=== PATIENT | male | born 1970 | race Caucasian/White ===

== ENCOUNTER 2017-11-01 16:08 | Emergency (ER) | payer MEDICAID ==
[~2017-11-01] VITALS: Ht 188 cm; Wt 90.7 kg
[2017-11-01 16:10] VITALS: BP_SYST 126
[2017-11-01 18:15] VITALS: BP_SYST 124
== END 2017-11-01 18:14 | disposition home or self-care (01) ==
LOC: SED 16:08
DX: S60.221A Contusion of right hand, initial encounter (principal); K21.9 Gastro-esophageal reflux disease without esophagitis; X58.XXXA Exposure to other specified factors, initial encounter; Y93.89 Activity, other specified; Y92.89 Other specified places as the place of occurrence of the external cause; Y99.8 Other external cause status
CPT/HCPCS: 99284

== ENCOUNTER 2017-11-28 10:42 | Emergency (ER) | payer MEDICAID ==
[~2017-11-28] VITALS: Ht 188 cm; Wt 90.7 kg
[2017-11-28 10:46] VITALS: BP_SYST 152
[2017-11-28 12:15] VITALS: BP_SYST 152
== END 2017-11-28 12:15 | disposition home or self-care (01) ==
LOC: SED 10:42
DX: M54.5 Low back pain (principal); Z90.49 Acquired absence of other specified parts of digestive tract
CPT/HCPCS: 99282

== ENCOUNTER 2018-11-24 13:12 | Emergency (ER) | payer MEDICAID ==
[~2018-11-24] VITALS: Ht 188 cm; Wt 90.7 kg
[2018-11-24 13:26] VITALS: BP_SYST 142
[2018-11-24 16:44] VITALS: BP_SYST 134
== END 2018-11-24 16:44 | disposition home or self-care (01) ==
LOC: SED 13:12
DX: S63.065A Dislocation of metacarpal (bone), proximal end of left hand, initial encounter (principal); R03.0 Elevated blood-pressure reading, without diagnosis of hypertension; Z90.49 Acquired absence of other specified parts of digestive tract; W54.1XXA Struck by dog, initial encounter; Y93.89 Activity, other specified; Y92.89 Other specified places as the place of occurrence of the external cause; Y99.8 Other external cause status
CPT/HCPCS: 99283

== ENCOUNTER 2018-12-06 13:20 | Emergency (ER) | payer MEDICAID ==
[~2018-12-06] VITALS: Ht 188 cm; Wt 88.5 kg
[2018-12-06 13:30] VITALS: BP_SYST 132
--- NOTE | 2018-12-06 13:30 | NUR ---
Patient to ER bed 8 to gown for evaluation. Side rails up. Report given to Daniel BEE.
--- NOTE | 2018-12-06 13:35 | NUR ---
PT presented at ER with complaints of wrist pain. The patient claimed that he tore his ligament in his wrist and wanted a follow up xray to confirm.
--- NOTE | 2018-12-06 13:35 | NUR ---
ER at bedside examining patient.
--- NOTE | 2018-12-06 13:40 | NUR ---
Patient transported to radiology and is ambulatory, accompanied by taj.
[2018-12-06 14:40] VITALS: BP_SYST 132
--- NOTE | 2018-12-06 14:40 | NUR ---
Patient given written and verbal discharge instructions and verbalizes understanding. ER MD discussed with patient the results and treatment provided. Patient in stable condition. ID arm band removed. Rx of [place]aga given. Patient educated on pain management and to follow up with PMD. Pain Scale 3/10. Opportunity for questions provided and answered. Medication side effect fact sheet provided.
== END 2018-12-06 14:40 | disposition home or self-care (01) ==
LOC: SED 13:20
DX: M25.532 Pain in left wrist (principal); Z90.49 Acquired absence of other specified parts of digestive tract
CPT/HCPCS: 99283

== ENCOUNTER 2020-05-18 18:25 | Emergency (ER) | payer MEDICAID ==
[~2020-05-18] VITALS: Ht 188 cm; Wt 88.5 kg
[2020-05-18 18:48] VITALS: BP_SYST 176
[2020-05-18] MEDS: KETOROLAC TROMETHAMINE 60 MG/2 ML VIAL IM ONE (18:55)
[2020-05-18 21:59] LABS: BASOPHILS % (AUTO) 0.4 % (0.0-2.0); EOSINOPHILS # (AUTO) 0.2 K/uL (0.0-0.4); EOSINOPHILS % (AUTO) 2.7 % (0.0-4.0); HEMATOCRIT 45.2 % (36-54); HEMOGLOBIN 15.7 g/dL (14.0-18.0); LYMPHOCYTES # (AUTO) 2.2 K/uL (1.0-5.5); LYMPHOCYTES % (AUTO) 30.2 % (20.5-51.5); MEAN CORPUSCULAR HEMOGLOBIN 31 pg (27-31); MEAN CORPUSCULAR HGB CONC 35 % (32-36); MEAN CORPUSCULAR VOLUME 90 fL (79.0-98.0); MONOCYTES # (AUTO) 0.7 K/uL (0.0-1.0); MONOCYTES % (AUTO) 9.2 % (1.7-9.3); NEUTROPHILS # (AUTO) 4.1 K/uL (1.8-7.7); NEUTROPHILS % (AUTO) 57.5 % (40.0-70.0); PLATELET COUNT (AUTO) 271 K/uL (130-430); RED BLOOD CELL COUNT(AUTO) 5.01 MIL/uL (4.2-6.2); RED CELL DISTRIBUTION WIDTH 13.2 % (9.0-15.0); WHITE BLOOD COUNT (AUTO) 7.2 K/uL (4.8-10.8)
[2020-05-18] MEDS: HYDROcodone/ACETAMIN 5-325 MG TAB (NORCO/ VICODIN) PO ONE (22:11)
[2020-05-18 22:14] LABS: CALCIUM 8.8 mg/dL (8.4-11.0); CREATININE 1.03 mg/dL (0.55-1.30); POTASSIUM 3.6 mmol/L (3.5-5.1)
[2020-05-18 22:20] LABS: ALBUMIN 4.4 g/dL (3.4-4.8); TOTAL BILIRUBIN 0.9 mg/dL (0.0-1.0)
[2020-05-18 22:41] VITALS: BP_SYST 176
== END 2020-05-18 22:43 | disposition home or self-care (01) ==
LOC: SED 18:25
DX: M54.6 Pain in thoracic spine (principal); V49.69XA Unspecified car occupant injured in collision with other motor vehicles in traffic accident, initial encounter; Y93.89 Activity, other specified; Y92.413 State road as the place of occurrence of the external cause; Y99.8 Other external cause status
CPT/HCPCS: 36415; 70450; 71045; 71250; 72125; 72128; 76376; 80053; 85025; 96372; 99285; J1885

== ENCOUNTER 2020-09-17 16:41 | Emergency (ER) | payer MEDICAID ==
[~2020-09-17] VITALS: Ht 188 cm; Wt 93.0 kg
[2020-09-17 16:50] VITALS: BP_SYST 157
== END 2020-09-17 19:00 | disposition left against medical advice (07) ==
LOC: SED 16:41
DX: M79.672 Pain in left foot (principal); Z53.21 Procedure and treatment not carried out due to patient leaving prior to being seen by health care provider

== ENCOUNTER 2020-10-22 19:37 | Emergency (ER) | payer MEDICAID ==
[~2020-10-22] VITALS: Ht 188 cm; Wt 97.5 kg
[2020-10-22 20:08] VITALS: BP_SYST 156
[2020-10-23] MEDS ORDERED: cefTRIAXone 1 GM in LIDOCAINE 1%, 20 ML MDV 2.1 ML IM ONE (00:15)
[2020-10-23] MEDS ORDERED: CEPH250C PO (00:23)
[2020-10-23] MEDS ORDERED: BACTROBAN TP (00:33)
[2020-10-23 00:43] VITALS: BP_SYST 133
== END 2020-10-23 00:38 | disposition home or self-care (01) ==
LOC: SED 19:37
DX: R22.0 Localized swelling, mass and lump, head (principal)
CPT/HCPCS: 76536; 96372; 99284; J0696; J2001

== ENCOUNTER 2022-10-16 10:40 | Emergency (ER) | payer MEDICAID ==
[~2022-10-16] VITALS: Ht 188 cm; Wt 90.7 kg
[~2022-10-16 10:40] MED LIST: BACTROBAN TP; CEPH250C PO
[2022-10-16 11:01] VITALS: BP_SYST 131
[2022-10-16] MEDS ORDERED: NAPR-690 PO (12:15)
[2022-10-16 15:53] VITALS: BP_SYST 131
== END 2022-10-16 13:20 | disposition home or self-care (01) ==
LOC: SED 10:40
DX: S83.92XA Sprain of unspecified site of left knee, initial encounter (principal); Z79.899 Other long term (current) drug therapy; W19.XXXA Unspecified fall, initial encounter; Y93.89 Activity, other specified; Y92.89 Other specified places as the place of occurrence of the external cause; Y99.8 Other external cause status
CPT/HCPCS: 73564; 99283

== ENCOUNTER 2023-04-04 22:46 | Emergency (ER) | payer MEDICAID ==
[~2023-04-04] VITALS: Ht 188 cm; Wt 90.7 kg
[~2023-04-04 22:46] MED LIST changes: +NAPR-690 PO
[2023-04-04 22:47] VITALS: BP_SYST 138; PULSE 87; RESP 20; TEMP 98.2; O2SAT 96
[2023-04-05 01:05] VITALS: BP_SYST 138; PULSE 87; RESP 20; TEMP 98.2; O2SAT 96
== END 2023-04-05 01:05 | disposition home or self-care (01) ==
LOC: SED 22:46
DX: S00.03XA Contusion of scalp, initial encounter (principal); S10.83XA Contusion of other specified part of neck, initial encounter; J45.909 Unspecified asthma, uncomplicated; I10 Essential (primary) hypertension; Z79.899 Other long term (current) drug therapy; W18.40XA Slipping, tripping and stumbling without falling, unspecified, initial encounter; Y93.89 Activity, other specified; Y92.89 Other specified places as the place of occurrence of the external cause; Y99.8 Other external cause status
CPT/HCPCS: 70450-TC; 72125-TC; 76376; 99284